=== PATIENT | male | born 1970 | race Caucasian/White ===

== ENCOUNTER 2025-02-23 07:43 | Emergency (ER) | payer BC, SELFPAY ==
[2025-02-23] VITALS (7 sets, daily range): BP systolic 113–131; BP diastolic 77–84; PULSE 64–91; RESP 14–16; TEMP 36.7; O2SAT 91–97
--- NOTE | 2025-02-23 07:48 | ECG_ITS ---
Test Date: 2025-02-23 07:45:14 Measurements Intervals [place] Rate: 64 P: 34 MS: 168 QRS: -3 QRSD: 81 T: 41 QT: 408 QTc: 422 Interpretive Statements SINUS RHYTHM NONSPECIFIC T-WAVE ABNORMALITY No previous ECG available for comparison Electronically Signed On 02-23-2025 09:30:07 CDT by Jadiel Reid M.D.
[2025-02-23] MEDS: SODIUM CHLORIDE 0.9% IV 1,000 ML 999 ML IV CONT (07:55)
[2025-02-23 08:04] LABS: Hematocrit 47.8 % (42.0-52.0); Hemoglobin 16.1 g/dL (14.0-18.0); Immature Granulocyte Percent A 0.8 % (0-0.5); Lymphocytes Absolute Auto 2.06 K/mm3 (0.9-3.2); Mean Corpuscular HGB Conc 33.7 g/dl (32-36); Mean Corpuscular Hemoglobin 29.7 pg (26-34); Mean Corpuscular Volume 88.2 fl (80-100); Nucleated Red Blood Cells Absolute Auto 0.000 K/mm3 (0.0-0.012); Nucleated Red Blood Cells Perc 0.0 % (0.0-0.2); Platelet Count Result 300 k/mm3 (150-375); Red Blood Count 5.42 M/mm3 (4.6-6.20); White Blood Count 16.5 K/mm3 (4.5-10.0)
[2025-02-23 08:24] LABS: Alanine Aminotransferase 36 U/L (6-50); Albumin Level 4.5 g/dL (3.5-5.1); Alkaline Phosphatase 69 U/L (38-126); Anion Gap 11 mmol/L (4-12); Aspartate Amino Transferase 32 U/L (17-59); Bilirubin,Total 0.6 mg/dL (0.2-1.3); Blood Urea Nitrogen 17 mg/dL (9-20); Calcium 10.0 mg/dL (8.4-10.2); Carbon Dioxide 26 mmol/L (22-30); Chloride 103 mmol/L (98-107); Estimated CRCL calculation 54 ml/min; Estimated Glomerular Filt Rate 56; Glucose 183 mg/dL (65-110); Potassium 3.4 mmol/L (3.4-5.0); Sodium 140 mmol/L (137-145); Total Protein 7.3 g/dL (6.3-8.2)
--- OUTSIDE RECORDS SUMMARY | 2025-02-23 08:51 | XMS_ITS | Clinical Summary ---
Author Organization [facility] Address [address] [place] [address] Phone Care Team Providers Care Expeller Worker Name Role Phone Matthew Rodarte MD Primary Care Provider [phone] Allergies No known active allergies Medications rosuvastatin (CRESTOR) 5 mg tablet Take 5 mg by mouth daily. Active omega-3 acid ethyl esters (LOVAZA) 1 gram Capsule Take 4 Grams by mouth daily. Active ergocalciferol (VITAMIN D2) 50,000 unit capsule Take 50,000 Units by mouth. Active lisinopriL (PRINIVIL) 40 mg tablet Take 40 mg by mouth daily. Active amLODIPine-atorv astatin 5-10 mg tablet Take 1 Tablet by mouth daily. Active loratadine (CLARITIN) 10 mg tablet Take 10 mg by mouth daily. Active Active Problems Problem Noted Date Diagnosed Date Lesion of left femur 08/04/2024 Pain of left hip 08/04/2024 Encounters Date Type Department Care Team Description 12/17/2024 10:50 AM CDT - 12/17/2024 11:59 PM CDT Hospital Encounter [facility] CT Scan [address] [place] [id number] Gerardo Cee MD Discharge Disposition: Home or Self Care 12/15/2024 External Device Data [facility] ABSTRACTION Provider, Abstract 12/04/2024 9:00 AM CDT Ancillary Procedure [facility] [address] [place] [id number] Gerardo Cee MD Screening for osteoporosis from Last 3 Months Family History Medical History Relation Name Comments Colon Cancer Neg Hx Social History Tobacco Use Types Packs/Day Years Used Date Smoking Tobacco: Never Tobacco Cessation:Counseling Given: Not Answered Alcohol Use Standard Drinks/Week Comments Yes 0 (1 standard drink = 0.6 oz pur e alcohol) occasional Sex and Gender Information Value Date Recorded Sex Assigned at Not on file Legal Sex Male 11:10 AM CDT Gender Identity Not on file Sexual Orientation Not on file Last Filed Vital Signs Vital Sign Reading Time Taken Comments Blood Pressure 118/90 03/08/2021 9:03 AM CDT Pulse 82 03/08/2021 9:03 AM CDT Temperature 36.1 C (96.9 F) 03/08/2021 8:52 AM CDT Respiratory Rate 19 03/08/2021 9:03 AM CDT Oxygen Saturation 97% 03/08/2021 9:03 AM CDT Inhaled Oxygen Concentration - - Weight 73.5 kg (162 lb) 03/08/2021 7:24 AM CDT Height 162.6 cm (5' 4) 03/08/2021 7:24 AM CDT Body Mass Index 27.81 03/08/2021 7:24 AM CDT Plan of Treatment Health Maintenance Due Date Last Done Comments Pre-Diabetes and Diabetes Screening 1970 DTAP/TDAP/TD VACCINES (1 - Tdap) 1988 HEPATITIS B VACCINES (1 of 3 - 19+ 3-dose series) 1988 FIT-DNA Q 3 years 2014 FIT/FOBT Q 1 year 2014 Flex Sig/CT Colonography Q 5 years 2014 ZOSTER VACCINE (1 of 2) 11/27/2019 COVID-19 Vaccine ( season) 2024 08/09/2021, 10/21/2020, 09/23/2020 COLORECTAL SCREENING 03/08/2024 03/08/2021, 03/08/20 21 Colorectal Cancer Screening 03/08/2024 INFLUENZA VACCINE (#1) 2025 Medical Devices Implanted Type Area Time Study Statistician Device Identifier Shelf Expiration Date Model / Serial / Lot Clip Endo Resolution 360 235cm [id number] - [id number] Implanted:Qty: 1 on 03/08/2021 by Sandra Infante MD at [facility] Clip N/A: Perianal [employer] 10/18/2024 [id number] / / Description:polypectomy site Procedures Procedure Name Priority Date/Time Associated Diagnosis Comments CT ABDOMEN W WO CONTRAST Routine 12/17/2024 11:31 AM CDT Cyst of left kidney POC CREATININE Routine 12/17/2024 11:[address] BONE DENS STUDY 1+ SITE AXIAL Routine 12/04/2024 8:31 AM CDT Screening for osteoporosis COLONOSCOPY REPORT 03/08/2021 8: 53 AM CDT from Last 3 Months or Most Recently Relevant to Health Maintenance Results * CT ABDOMEN W WO CONTRAST (12/17/2024 11:31 AM CDT) Anatomical Region Laterality Modality Abdomen Computed Tomogra phy 12/17/2024 11:1 1 AM CDT Impressions 12/19/2024 10:04 AM CDT IMPRESSION: 1. Complex left renal cortical lesion exophytic from the inferolateral pole which demonstrates mildly elevated precontrast Hounsfield measurements as well as an area of internal enhancement within its lateral aspect, which may relate to an internal solid component, and which raises concern for a neoplastic process. Size of this lesion is only minimally larger than the prior examination. Further imaging catheterization could be performed with MRI. 2. Small area of enhancement suggested within the lumen of the gallbladder, perhaps reflective of a polyp. Attention on suggested follow-up MRI. Consider gallbladder ultrasound as well. 3. Stable right upper lobe pulmonary nodule. 4. Colonic diverticulosis without diverticulitis. 5. Several simple cysts involve the kidneys. DICTATION LOCATION: Location [facility] Narrative 12/19/2024 10:[address] ABDOMEN WITH AND WITHOUT CONTRAST WITH RECONSTRUCTIONS DATE: 12/17/2024 11:31 AM CLINICAL INFORMATION: Cyst of left kidney. COMPARISON: CT abdomen and pelvis from an outside institution 07/23/2022. PROCEDURE: Axial images were obtained from the lung bases through the iliac crests before and after the administration of 50 mL IV Isovue-300. Oral contrast was not administered. Multiplanar reformatted images were reviewed. The examination was performed with the adjustment of mA according to the patient size and/or the use of iterative reconstruction technique. FINDINGS: LOWER CHEST: Pulmonary nodule identified within the right upper lobe measuring approximately 8 mm. Comparison to a CT chest study of 02/14/2023 demonstrates an unchanged nodule in this position. LIVER: Within normal limits GALLBLADDER: Small focus of enhancement noted within the lumen of the gallbladder superiorly measuring up to 7 x 3 mm. BILE DUCTS: No biliary dilatation PANCREAS: Within normal limits. SPLEEN: Within normal limits. ADRENALS: Right adrenal gland appears normal. There is a tiny left adrenal nodule with Hounsfield unit measurements less than 0 attributed to an adenoma measuring 0.7 x 0.8 cm. KIDNEYS/URETERS: Bilateral simple renal cysts, largest in the right kidney measuring 4.0 x 5.7 cm and within the left kidney measuring 3.8 x 4.2 cm. There is a complex lesion involving the inferior lateral aspect of the left kidney which on the precontrast images demonstrates Hounsfield unit measurements in the 50s. Postcontrast images demonstrate heterogeneous enhancement involving the lateral aspect of the lesion, which could relate to an internal solid component. Total size of this lesion is 2.2 x 2.1 x 1.9 cm in craniocaudal, AP, and transverse dimensions. Overall size of this lesion is only mildly larger when compared to the prior study. Symmetric bilateral renal contrast excretion. No renal calculus. Visualized portions: BOWEL/MESENTERY: Mild diverticulosis of the descending colon without diverticulitis. Included small and large bowel loops appear unremarkable without signs for obstruction. Stomach appears within normal limits. PERITONEUM/RETROPERITONEUM: No ascites, free air, or lymphadenopathy. VESSELS: Within normal limits. ABDOMINAL WALL: Tiny fat-containing umbilical hernia. BONES: Multilevel spondylosis within the spine. Procedure Note Dusty Daniel DO - 12/19/2024 CT ABDOMEN WITH AND WITHOUT CONTRAST WITH RECONSTRUCTIONS DATE: 12/17/2024 11:31 AM CLINICAL INFORMATION: Cyst of left kidney. COMPARISON: CT abdomen and pelvis from an outside institution 07/23/2022. PROCEDURE: Axial images were obtained from the lung bases through the iliac crests before and after the administration of 50 mL IV Isovue-300. Oral contrast was not administered. Multiplanar reformatted images were reviewed. The examination was performed with the adjustment of mA according to the patient size and/or the use of iterative reconstruction technique. FINDINGS: LOWER CHEST: Pulmonary nodule identified within the right upper lobe measuring approximately 8 mm. Comparison to a CT chest study of 02/14/2023 demonstrates an unchanged nodule in this position. LIVER: Within normal limits GALLBLADDER: Small focus of enhancement noted within the lumen of the gallbladder superiorly measuring up to 7 x 3 mm. BILE DUCTS: No biliary dilatation PANCREAS: Within normal limits. SPLEEN: Within normal limits. ADRENALS: Right adrenal gland appears normal. There is a tiny left adrenal nodule with Hounsfield unit measurements less than 0 attributed to an adenoma measuring 0.7 x 0.8 cm. KIDNEYS/URETERS: Bilateral simple renal cysts, largest in the right kidney measuring 4.0 x 5.7 cm and within the left kidney measuring 3.8 x 4.2 cm. There is a complex lesion involving the inferior lateral aspect of the left kidney which on the precontrast images demonstrates Hounsfield unit measurements in the 50s. Postcontrast images demonstrate heterogeneous enhancement involving the lateral aspect of the lesion, which could relate to an internal solid component. Total size of this lesion is 2.2 x 2.1 x 1.9 cm in craniocaudal, AP, and transverse dimensions. Overall size of this lesion is only mildly larger when compared to the prior study. Symmetric bilateral renal contrast excretion. No renal calculus. Visualized portions: BOWEL/MESENTERY: Mild diverticulosis of the descending colon without diverticulitis. Included small and large bowel loops appear unremarkable without signs for obstruction. Stomach appears within normal limits. PERITONEUM/RETROPERITONEUM: No ascites, free air, or lymphadenopathy. VESSELS: Within normal limits. ABDOMINAL WALL: Tiny fat-containing umbilical hernia. BONES: Multilevel spondylosis within the spine. IMPRESSION: 1. Complex left renal cortical lesion exophytic from the inferolateral pole which demonstrates mildly elevated precontrast Hounsfield measurements as well as an area of internal enhancement within its lateral aspect, which may relate to an internal solid component, and which raises concern for a neoplastic process. Size of this lesion is only minimally larger than the prior examination. Further imaging catheterization could be performed with MRI. 2. Small area of enhancement suggested within the lumen of the gallbladder, perhaps reflective of a polyp. Attention on suggested follow-up MRI. Consider gallbladder ultrasound as well. 3. Stable right upper lobe pulmonary nodule. 4. Colonic diverticulosis without diverticulitis. 5. Several simple cysts involve the kidneys. DICTATION LOCATION: Location [address] [place] [address] ORDERABLES Final Resul t * POC CREATININE (12/17/2024 11:06 AM CDT) CREATININE POC 1.00 0.70 - 1.20 mg/dL 12/17/2024 11:06 AM CDT [facility] MULT[facility] SITE/OPS [facility] GFR POC >60 >=60 mL/min/1.7 3 sq meter 12/17/2024 11:06 AM CDT [facility] SITE/[facility] Comment:eGFR calculated with 2020 CKD-EPI equation. Vegetarian diet, extremely high or low muscle mass, and may affect results. Cystatin C with Glomerular Filtration Rate is a suitable alternative for these patients. Blood, whole 12/17/2024 11:0 6 AM CDT 12/17/2024 11:10 AM CDT us Gerardo Cee MD POINT OF CARE TESTING Final Result [facility] SITE/[facility] CLIA # [id number] [place] [address] * CT BONE DENS STUDY 1+ SITE AXIAL (12/04/2024 8:31 AM CDT) Anatomical Region Laterality Modality Computed Tomogra phy 12/04/2024 8:22 AM CDT Narrative 12/04/2024 8:44 AM CDT EXAM: CT BONE DENS STUDY 1+ SITE AXIAL STUDY DATE12/04/2024 8:31 AM INDICATION: Screening for osteoporosis Attached is the QCT Bone Mineral Density Reports for [facility]. For the spine, a true volumetric BMD measurement was made and, rather than using T-Scores, was compared to guideline thresholds from the [employer]. For the hip, a DXA-equivalent T-Score was calculated for comparison to the WHO classification at the proximal femur. This T-Score may also be used for fracture risk probability calculation in the WHO FRAX tool with T-Score as the appropriate DXA setting. INCIDENTAL LIMITED CT FINDINGS: There are cysts of the visualized bilateral kidneys. At the lower pole of the left kidney, there is a lesion which cannot be stated to represent a simple cyst on the basis of this study measuring 2 cm. Although this lesion may represent a hyperdense cyst, either dedicated renal CT or renal MRI would be recommended. The prostate gland is enlarged measuring up to 6.4 cm and containing dystrophic calcifications. Procedure Note Mary Lopez MD - 12/04/2024 EXAM: CT BONE DENS STUDY 1+ SITE AXIAL STUDY DATE12/04/2024 8:31 AM INDICATION: Screening for osteoporosis Attached is the QCT Bone Mineral Density Reports for [employer]. For the spine, a true volumetric BMD measurement was made and, rather than using T-Scores, was compared to guideline thresholds from the [employer]. For the hip, a DXA-equivalent T-Score was calculated for comparison to the WHO classification at the proximal femur. This T-Score may also be used for fracture risk probability calculation in the WHO FRAX tool with T-Score as the appropriate DXA setting. INCIDENTAL LIMITED CT FINDINGS: There are cysts of the visualized bilateral kidneys. At the lower pole of the left kidney, there is a lesion which cannot be stated to represent a simple cyst on the basis of this study measuring 2 cm. Although this lesion may represent a hyperdense cyst, either dedicated renal CT or renal MRI would be recommended. The prostate gland is enlarged measuring up to 6.4 cm and containing dystrophic calcifications. us Gerardo Cee MD CT ORDERABLES Final Resul t * COLONOSCOPY REPORT (03/08/2021 8:53 AM CDT) Narrative Procedure Note Sandra Infante MD - 03/08/2021 8:52 AM CDT [facility] Patient Name: Diego Medina Procedure Date: 03/08/2021 Date of : 1970 Age: 50 Attending MD: Sandra Infante , Procedure: Colonoscopy Indications: Positive Cologuard test Providers: Sandra Infante Referring MD: Matthew Rodarte MD Medicines: Propofol per Anesthesia Procedure: Informed consent was obtained for the procedure, including moderate sedation after risks were discussed. Based on the pre-procedure assessment, including review of the patient's medical history, medications, allergies, and review of systems, the patient was deemed to be an appropriate candidate for sedation. A timeout was performed. Continuous ECG monitoring, pulse oximetry, blood pressure monitoring, and direct observation were performed. The Colonoscope was introduced through the anus and advanced to the cecum, identified by appendiceal orifice and ileocecal valve. The colonoscopy was performed without difficulty. The patient tolerated the procedure well. The quality of the bowel preparation was good. Estimated Blood Loss: Estimated blood loss was minimal. Findings: A 12 mm polyp was found in the proximal transverse colon. The polyp was pedunculated. The polyp was removed with a hot snare. Resection and retrieval were complete. To prevent bleeding after the polypectomy, one hemostatic clip was successfully placed (MR conditional). There was no bleeding at the end of the procedure. Five sessile polyps were found in the sigmoid colon and descending colon. The polyps were 4 to 6 mm in size. These polyps were removed with a cold snare. Resection and retrieval were complete. Non-bleeding internal hemorrhoids were found during retroflexion. The hemorrhoids were small. The exam was otherwise without abnormality. Complications: No immediate complications. Impression: - One 12 mm polyp in the proximal transverse colon, removed with a hot snare. Resected and retrieved. Clip (MR conditional) was placed. - Five 4 to 6 mm polyps in the sigmoid colon and in the descending colon, removed with a cold snare. Resected and retrieved. - Non-bleeding internal hemorrhoids. - The examination was otherwise normal. Recommendation: - Discharge patient to home (with escort). - Patient has a contact number available for emergencies. The signs and symptoms of potential delayed complications were discussed with the patient. Return to normal activities tomorrow. Written discharge instructions were provided to the patient. - Resume previous diet. - No ibuprofen, naproxen, or other non-steroidal anti-inflammatory drugs for 10 days after polyp removal. - Repeat colonoscopy in 3 years for surveillance. - Await pathology results. - Return to primary care physician as previously scheduled. Sandra Infante, 03/08/2021 8:52:49 AM This report has been signed electronically. Number of Addenda: 0 Procedure Date: 03/08/2021 8:06:[address] [place] [address] Sandra Infante MD GI PROCEDURE ORDERABLE S Final Result from Last 3 Months or Most Recently Relevant to Health Maintenance Insurance [facility] OUT OF STATE [facility] BLUE ACCESS CHOICE Advance Directives For more information, please contact: [phone] * Full Code (Latest Code Status on File) Date Activated Date Inactivated Comments 03/08/2021 7:26 AM 03/08/2021 11:21 AM Care Teams Expeller Worker Relationship Specialty [place] [id number] [phone] PCP - General Internal Medicine 02/08/21
--- OUTSIDE RECORDS SUMMARY | 2025-02-23 08:51 | XMS_ITS | Clinical Summary ---
Author Organization [facility] Address [address] [place] [address] Care Team Providers Care Manager Cafe Name Role Phone Gerardo Cee MD Primary Care Provider [phone] Allergies No known active allergies Medications amLODIPine (NORVASC) 10 mg tablet Take 1 tablet (10 mg total) by mouth daily Active lisinopriL (PRINIVIL,ZESTR IL) 40 mg tablet Take 1 tablet (40 mg total) by mouth daily Active rosuvastatin (CRESTOR) 5 mg tablet Take 1 tablet (5 mg total) by mouth nightly Active omega 7-swi-vaw-fish oil 1,000 (120-180) mg capsule Take 1 capsule (1,000 mg total) by mouth nightly Active fluticasone propion-salmete roL (ADVAIR DISKUS) 500-50 mcg/dose diskus inhaler Inhale 1 puff 2 (two) times a day Rinse mouth with water after use. Do not swallow. Active ergocalciferol, vitamin D2, 10 mcg (400 unit) tablet Take 5,000 Units by mouth daily Active cetirizine (ZyrTEC) 10 mg tablet Take 1 tablet (10 mg total) by mouth daily Active tamsulosin (FLOMAX) 0.4 mg extended release capsule Take 1 capsule (0.4 mg total) by mouth nightly 30 capsule 11 08/27/2024 Active Active Problems Problem Noted Date Diagnosed Date Elevated PSA 08/11/2024 Encounters Date Type Department Care Team Description 01/29/2025 7:09 AM CDT - 01/29/2025 11:59 PM CDT Hospital Encounter [facility] [address] [place] [address] Localized swelling, mass and lump, trunk Discharge Disposition: Discharge to home or self care from Last 3 Months Surgical History Surgery Date Site/Laterality Comments DENTAL SURGERY EYE MUSCLE SURGERY as a child, to correct lazy eye Medical History Medical History Date Comments Elevated PSA Sleep apnea Motion sickness Umbilical hernia Hypertension Hyperlipidemia Asthma Lung nodule being watched, n o current treatment needed. Social History Tobacco Use Types Packs/Day Years Used Date Smoking Tobacco: Never Tobacco Cessation:Counseling Given: Not Answered Personal Safety Answer Date Recorded Have you ever been in or are you currently in a harmful physical or emotional relationship or is someone making you feel afraid or unsafe? Denies 08/27/2024 Sex and Gender Information Value Date Recorded Sex Assigned at Not on file Legal Sex Male 12:08 PM MINILAB OPERATOR Gender Identity Male 03/09/2023 10:21 AM CDT Sexual Orientation Straight 03/09/2023 10 :21 AM CDT Obstetrics History Last Filed Vital Signs Vital Sign Reading Time Taken Comments Blood Pressure 142/89 08/27/2024 2:30 PM MINILAB OPERATOR Pulse 63 08/27/2024 2:30 PM MINILAB OPERATOR Temperature 36.5 C (97.7 F) 08/27/2024 2:00 PM MINILAB OPERATOR Respiratory Rate 14 08/27/2024 2:00 PM MINILAB OPERATOR Oxygen Saturation 96% 08/27/2024 2:30 PM MINILAB OPERATOR Inhaled Oxygen Concentration - - Weight 76.7 kg (169 lb) 08/27/2024 7:58 AM MINILAB OPERATOR Height 162.6 cm (5' 4) 08/27/2024 7:58 AM MINILAB OPERATOR Body Mass Index 29.01 08/27/2024 7:58 AM MINILAB OPERATOR Plan of Treatment Health Maintenance Due Date Last Done Comments Colon Cancer Screening-Colonoscopy 1969 Depression Screening 1969 Hepatitis C Screening 1969 DTaP/Tdap/Td Vaccine (1 - Tdap) 1980 Hepatitis B Screening 11/27/1987 Regular Well Visit/Exam 18-64 11/27/1987 Pneumococcal vaccine <65 (1 of 2 - PCV) 1988 Zoster Vaccine (1 of 2) 11/27/2019 Covid-19 Vaccine ( season) 2024 08/09/2021, 10/21/2020, 09/23/2020 Influenza Vaccine (#1) 2025 , 04/23/2020, 04/06/2017 Prostate Cancer Screening-PSA 03/03/2026 03/03/2024 Procedures Procedure Name Priority Date/Time Associated Diagnosis Comments CT CHEST WO CONTRAST Schedule Routine, Read Routine (OP Routine) 01/29/2025 7:42 AM CDT Localized swelling, mass and lump, trunk PSA, TOTAL AND FREE Routine 03/03/2024 10:12 AM CDT Elevated PSA from Last 3 Months or Most Recently Relevant to Health Maintenance Results * CT Chest WO Contrast (01/29/2025 7:42 AM CDT) Anatomical Region Laterality Modality Body N/A Computed Tomogra phy 01/29/2025 2:13 PM CDT Impressions 01/29/2025 2:13 PM CDT Right upper lobe 9 mm lobulated nodule is unchanged. Suggest 12 month follow up. Electronically signed by: Celia Arizmendi M.D. Narrative 01/29/2025 2:13 PM CDT Examination: CT CHEST WO CONTRAST Date: 01/29/2025 7:15 AM Clinical History: R22.2 Technique: Computed tomographic images of the chest were obtained in the axial plane without the administration of contrast. 2-D Coronal and sagittal reformatted images were performed. Comparison: CT chest 01/23/[address] 03/09/2023. Findings: Normal heart size noted.There is no pericardial effusion Nonaneurysmal aorta noted .There is no mediastinal lymphadenopathy . A 9 mm lobulated right upper lobe nodule is unchanged. A calcified right upper lobe granuloma is noted.No consolidation or effusion noted.. A T5 body lucent lesion is unchanged likely a hemangioma. Bilateral renal cysts seen up to 5.5 cm on the right noted . Procedure Note Celia Arizmendi MD - 01/29/2025 Examination: CT CHEST WO CONTRAST Date: 01/29/2025 7:15 AM Clinical History: R22.2 Technique: Computed tomographic images of the chest were obtained in the axial plane without the administration of contrast. 2-D Coronal and sagittal reformatted images were performed. Comparison: CT chest 01/23/[address] 03/09/2023. Findings: Normal heart size noted.There is no pericardial effusion Nonaneurysmal aorta noted .There is no mediastinal lymphadenopathy . A 9 mm lobulated right upper lobe nodule is unchanged. A calcified right upper lobe granuloma is noted.No consolidation or effusion noted.. A T5 body lucent lesion is unchanged likely a hemangioma. Bilateral renal cysts seen up to 5.5 cm on the right noted . IMPRESSION: Right upper lobe 9 mm lobulated nodule is unchanged. Suggest 12 month follow up. Electronically signed by: Celia Arizmendi M.D. us Carli Jiménez MD IMG CT PROCEDURES Final Result * (ABNORMAL) PSA, total and free (03/03/2024 10:12 AM CDT) PSA-free 2.1 ng/mL [facility] PSA-Total 7.0(H) <=3.5 ng/mL [facility] PSA-Free/Total Ratio 0.30 [facility] Comment: When Total PSA is in the range of 4.0-10.0 ng/mL: Probability of Cancer fPSA/tPSA ratio 50-59 years 60-69 years >or= 70 years < or = 0.10 49% 58% 65% 0.11 - 0.18 27% 34% 41% 0.19 - 0.25 18% 24% 30% > 0.25 9% 12% 16% ADDITIONAL INFORMATION The testing method is an electrochemiluminescence assay manufactured by [employer] and performed on the Modular or Karen system. Values obtained with different assay methods or kits may be different and cannot be used interchangeably. Test results cannot be interpreted as absolute evidence for the presence or absence of malignant disease. Test Performed by: [facility] [address] [place] [address] Manager Bilingual: Orquidea Hernandez Ph.D.; CLIA# [id number] Blood 03/03/2024 10:1 2 AM CDT 03/03/2024 12:40 PM CDT us Devon Lim MD LAB BLOOD ORDERABLES nal Result [facility] [id number] [address] Department [place] [address] [facility] Lab from Last 3 Months or Most Recently Relevant to Health Maintenance Insurance [employer] Care Teams Manager Cafe Relationship Specialty Start Date End Date Gerardo Cee MD [id number] [place] [address] PCP - General Internal Medicine 02/28/23
--- NOTE | 2025-02-23 09:39 | ED.WEAKNESS ---
HPI - Weakness General Chief complaint: Weakness Stated complaint: weakness Time Seen by Provider: 02/23/25 07:44 Source: patient Mode of arrival: EMS Limitations: no limitations History of Present Illness HPI Narrative: 54-year-old with a history of hypertension, vagal episode here with a complaint of sudden onset of weakness. 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 Denies any chest pain ,SOB , Abd pain . feeling much better by the time he got to the ER. Complaint: generalized weakness Onset (ago): hour(s) (1) Location: generalized Migration: none Severity: mild Relieving factors: none Exacerbating factors: none Associated symptoms: nausea/vomiting and syncope Related Data Allergies Allergy/AdvReac Type Severity Reaction Status Date / Time No Known Allergies Allergy Verified 02/23/25 07:50 Review of Systems Review of Systems: All systems reviewed & are unremarkable except as noted in HPI and below Constitutional: Constitutional: Reports no additional constitutional complaints Eyes: Eyes: Reports no additional eye complaints ENT: Reports system reviewed and no additional complaints, except as documented Cardiovascular: Cardiovascular: Reports no additional cardiovascular complaints Respiratory: Respiratory: Reports no additional respiratory complaints Gastrointestinal: Gastrointestinal: Reports no additional gastrointestinal complaints Musculoskeletal: Musculoskeletal: Reports no additional musculoskeletal complaints Neurologic: Reports system reviewed and no additional complaints, except as documented Psychiatric: Psychiatric: Reports no additional psychiatric complaints Endocrine: Endocrine: Reports no additional endocrine complaints Exam Narrative: GENERAL: Well-appearing, well-nourished, and in no acute distress. HEAD: Normocephalic, atraumatic. EYES: PERRLA and EOMI. ENT: Nares clear, no rhinorrhea or epistaxis. Mucous membranes moist. NECK: Supple. CHEST: Clear to auscultation. No respiratory distress. HEART: Regular rate and rhythm. No murmur heard. Normal peripheral pulses. ABDOMEN: Soft, nontender, nondistended, normal active bowel sounds. EXTREMITIES: Normal range of motion. No edema. SKIN: Warm, dry, no rash. NEURO: No focal deficits. Alert and oriented x3. PSYCH: Normal mood and affect. Course Course Emergency Course: Patient upon arrival was mildly hypotensive but otherwise is in exam and EKG were unremarkable and did give a L of fluid obtain lab work. Upper L of fluid he feels much better. I discussed the work up with pt and family , he does feel comfortable going home . He has scheduled appointment with his PMD in 2 days. Vital Signs Vital signs: Vital Signs Temperature 36.7 C 02/23/25 07:32 Pulse Rate 64 02/23/25 07:32 Respiratory Rate 16 02/23/25 07:32 Blood Pressure 113/81 02/23/25 07:32 Pulse Oximetry 91 02/23/25 07:32 Oxygen Delivery Room Air 02/23/25 07:32 Temperature 36.7 C 02/23/25 07:32 Pulse Rate 91 02/23/25 08:49 Respiratory Rate 15 02/23/25 08:27 Blood Pressure 118/82 02/23/25 08:49 Pulse Oximetry 97 02/23/25 08:27 Oxygen Delivery Room Air 02/23/25 07:32 MDM - Weakness Differential Diagnosis Differential diagnosis: Likely hypoglycemia and dehydration Medical Records Attestation: I reviewed the patient's medical records. Lab Data Attestation: I reviewed the patient's lab results. 02/23/25 07:57 02/23/25 07:57 Labs: Lab Results 02/23/25 02/23/25 Range/Units 07:47 07:57 WBC 16.5 H (4.5-10.0) K/mm3 RBC 5.42 (4.6-6.20) M/mm3 Hgb 16.1 (14.0-18.0) g/dL Hct 47.8 (42.0-52.0) % MCV 88.2 (80-100) fl MCH 29.7 (26-34) pg MCHC 33.7 (32-36) g/dl RDW 13.7 (11.5-14.5) % Plt Count 300 (150-375) k/mm3 MPV 8.5 (7.4-10.4) fl Immature Gran % (Auto) 0.8 H (0-0.5) % Neut % (Auto) 77.9 H (45.5-73.1) % Lymph % (Auto) 12.5 L (18.3-44.2) % Victoria % (Auto) 7.2 (2.6-8.5) % Eos % (Auto) 1.2 (0-4.4) % Baso % (Auto) 0.4 (0.2-1.2) % Lymph # (Auto) 2.06 (0.9-3.2) K/mm3 Victoria # (Auto) 1.2 H (0.1-0.6) K/mm3 Eos # (Auto) 0.2 (0-0.3) K/mm3 Baso # (Auto) 0.1 (0.0-0.1) K/mm3 Abs Immat Gran (auto) 0.13 H (0.00-0.031) K/mm3 Absolute Neuts (auto) 12.9 H (1.3-6.7) K/mm3 Absolute Nucleated RBC 0.000 (0.0-0.012) K/mm3 Nucleated RBC % 0.0 (0.0-0.2) % Sodium 140 (137-145) mmol/L Potassium 3.4 (3.4-5.0) mmol/L Chloride 103 (98-107) mmol/L Carbon Dioxide 26 (22-30) mmol/L Anion Gap 11 (4-12) mmol/L BUN 17 (9-20) mg/dL Creatinine 1.33 H (0.7-1.3) mg/dL Estim Creat Clear Calc 54 ml/min Estimated GFR 56 L (59 - ) Glucose 183 H (65-110) mg/dL POC Capillary Glucose 184 H (65-105) mg/dl Calcium 10.0 (8.4-10.2) mg/dL Total Bilirubin 0.6 (0.2-1.3) mg/dL AST 32 (17-59) U/L ALT 36 (6-50) U/L Alkaline Phosphatase 69 (38-126) U/L Total Protein 7.3 (6.3-8.2) g/dL Albumin 4.5 (3.5-5.1) g/dL ECG Data EKG #1: ECG completion date: 02/23/25 ECG completion time: 07:45 EKG Interpretation: normal rate (64), sinus rhythm, no ST changes, normal QRS, NL axis and no acute changes Discharge Plan Discharge Clinical Impression: Dizziness Patient Disposition: Home Condition: Stable Instructions: Dizziness (ED), Fatigue (ED) Additional Instructions: continue home medications, follow wit your doctor as scheduled. Patient Language: Czech Follow-up/Referrals: Kyle Saunders MD [Physician, Family Practice] UNKNOWN,DOCTOR [Primary Care Provider] Time of Disposition: 09:50
== END 2025-02-23 10:02 | disposition home or self-care (01) ==
PROVIDERS: Emergency Provider Family Medicine
DX: R42 Dizziness and giddiness (principal); I10 Essential (primary) hypertension; R94.31 Abnormal electrocardiogram [ECG] [EKG]
CPT/HCPCS: 36415; 80053; 82948; 85025; 93005; 96360; 99284; J7030